=== PATIENT | male | born 1965 | race Two or more races ===

== ENCOUNTER 2025-09-23 13:53 | Emergency (ER) | payer OTHER ==
[~2025-09-23] VITALS: Ht 167.6 cm; Wt 104.3 kg
[2025-09-23 13:55] VITALS: TEMP 97.7
--- NOTE | 2025-09-23 14:51 | ED.PDOC ---
History of Present Illness HPI Comments 60-year-old male presents to the ER with a chief complaint of dizziness. Patient reports on having intermittent dizziness and diarrhea for the past two nights. Patient states that the dizziness worsens at night, as well as it being worsened today associated with chill. Denies any other symptoms at this time. Denies chills, fever, N/V/D, SOB, CP. No other associated symptoms, modifiers, recent injuries or sick contacts present at this time. Chief Complaint: Dizziness Time Seen by MD: 14:50 Reviewed Notes: Nurses Notes, Medications, Allergies Allergies: Coded Allergies: NO KNOWN ALLERGIES (Unverified , 09/23/25) Information Source: Patient Mode of Arrival: Ambulatory Severity: Moderate Timing: Hours Duration: Since onset, Hours Prehospital treatment: None Past Medical History PAST MEDICAL HISTORY: Denies Surgical History: Denies all surgeries Family History Family History: Reviewed,noncontributory to illness, Unknown Social History Smoker: Non-Smoker Alcohol: Denies ETOH Use Drugs: Denies Drug Use Lives In: Home Constitutional: denies: chills, diaphoresis, fatigue, fever, malaise, sweats, weakness, others EENTM: denies: blurred vision, double vision, ear bleeding, ear discharge, ear drainage, ear pain, ear ringing, eye pain, eye redness, hearing loss, mouth pain, mouth swelling, nasal discharge, nose bleeding, nose congestion, nose pain, photophobia, tearing, throat pain, throat swelling, voice changes, others Respiratory: denies: cough, hemoptysis, orthopnea, SOB at rest, shortness of breath, SOB with excertion, stridor, wheezing, others Cardiovascular: denies: chest pain, dizzy spells, diaphoresis, Dyspnea on exertion, edema, irregular heart beat, left arm pain, lightheadedness, palpitations, PND, syncope, others Gastrointestinal: reports: diarrhea; denies: abdomen distended, abdominal pain, blood streaked bowels, constipated, dysphagia, difficulty swallowing, hematemesis, melena, nausea, poor appetite, poor fluid intake, rectal bleeding, rectal pain, vomiting, others Genitourinary: denies: burning, dysuria, flank pain, frequency, hematuria, incontinence, penile discharge, penile sore, pain, testicle pain, testicle swelling, urgency, others Neurological: reports: dizziness; denies: fainting, headache, left sided numbness, left sided weakness, numbness, paresthesia, pre-existing deficit, right sided numbness, right sided weakness, seizure, speech problems, tingling, tremors, weakness, others Musculoskeletal: denies: back pain, gout, joint pain, joint swelling, muscle pain, muscle stiffness, neck pain, others Integumetry: denies: bruises, change in color, change in hair/nails, dryness, laceration, lesions, lumps, rash, wounds, others Allergic/Immunocompromised: denies: Difficulty Healing, Frequent Infections, Hives, Itching, others Hematologic/Lymphatic: denies: anemia, blood clots, easy bleeding, easy bruising, swollen glands, others Endocrine: denies: excessive hunger, excessive sweating, excessive thirst, excessive urination, flushing, intolerance to cold, intolerance to heat, une xplained weight gain, unexplained weight loss, others Psychiatric: denies: anxiety, bipolar disorder, depression, hopeless, panic disorder, schizophrenia, sleepless, suicidal, others All Other Systems: Reviewed and Negative Physical Exam General Appearance: No Apparent Distress, Normal HEENT: Normal ENT Inspection, Pharynx Normal, TMs Normal Neck: Full Range of Motion, Non-Tender, Normal, Normal Inspection Respiratory: Chest Non-Tender, Lungs Clear, No Accessory Muscle Use, No Respiratory Distress, Normal Breath Sounds Cardiovascular: No Edema, No JVD, No Murmur, No Gallop, Normal Peripheral Pul ses, Regular Rate/Rhythm Breast Exam: Deferred Gastrointestinal: No Organomegaly, Non Tender, No Pulsatile Mass, Normal Bowel Sounds, Soft Genitalia: Deferred Pelvic: Deferred Rectal: Deferred Extremities: No calf tenderness, Normal capillary refill, Normal inspection, Normal range of motion, Non-tender, No pedal edema Musculoskeletal : Apperance: Normal Neurologic: Alert, 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 Was a procedure done?: No Differential Dx Considerations may include: Vertigo, ear infection, upper respiratory infection, CVA, X-Ray, Labs, Meds, VS Vital Signs Date Time Temp Pulse Resp B/P (MAP) Pulse Ox O2 Delivery O2 Flow Rate FiO2 09/23/25 14:08 74 09/23/25 13:55 97.7 90 15 142/86 98 97.7 Lab Test 09/23/25 14:45 Range/Units White Blood Count 6.4 4.4-10.8 10^3/uL Red Blood Count 4.16 L 4.5-5.90 10^6/uL Hemoglobin 13.3 L 13.5-17.5 g/dL Hematocrit 38.4 L 41.0-53.0 % Mean Corpuscular Volume 92.4 80.0-100.0 fL Mean Corpuscular Hemoglobin 32.0 28.0-32.0 pg Mean Corpuscular Hemoglobin Concent 34.7 32.0-36.0 g/dL Red Cell Distribution Width 13.3 11.8-14.3 % Platelet Count 314 140-450 10^3/uL Mean Platelet Volume 7.5 6.9-10.8 fL Neutrophils (%) (Auto) 67.0 37.0-80.0 % Lymphocytes (%) (Auto) 22.0 10.0-50.0 % Monocytes (%) (Auto) 8.9 0.0-12.0 % Eosinophils (%) (Auto) 1.8 0.0-7.0 % Basophils (%) (Auto) 0.3 0.0-2.0 % Neutrophils # (Auto) 4.3 1.6-8.6 10 ^3/uL Lymphocytes # (Auto) 1.4 0.4-5.4 10 ^3/uL Monocytes # (Auto) 0.6 0-1.3 10 ^3/uL Eosinophils # (Auto) 0.1 0-0.8 10 ^3/uL Basophils # (Auto) 0 0-0.2 10 ^3/uL Nucleated Red Blood Cells 0.1 % Sodium Level 139 136-145 mmol/L Potassium Level 3.9 3.5-5.1 mmol/L Chloride Level 100 98-107 mmol/L Carbon Dioxide Level 28 20-31 mmol/L Anion Gap 11 5-15 Blood Urea Nitrogen 11 9-23 mg/dL Creatinine 0.86 0.700-1.30 mg/dL Glomerular Filtration Rate Calc 99 >90 mL/min BUN/Creatinine Ratio 12.8 10.0-20.0 Serum Glucose 92 74-106 mg/dL Calcium Level 8.7 8.7-10.4 mg/dL X-Ray, Labs, Meds, VS Comment Imaging was reviewed by this provider, there is no obvious pathological or acute disease process. Pending radiology review Labs were reviewed by this provider, no abnormalities Vital signs reviewed by this provider, clinically stable Time of 1ST Reevaluation: 15:20 Reevaluation 1ST: Unchanged Patient Education/Counseling: Diagnosis, Treatment, Prognosis, Need For Follow Up (Follow up with PCP next available appointment. Return to the emergency department if symptoms worsen.) Family Education/Counseling: No Family Present SEPSIS Sepsis Screen Date sepsis recognized/suspect: Sep 23, 2025 Time Sepsis recognized/suspect: 1358 Recent Procedure: No On Antibiotic Therapy: No Respiratory Rate >20: No Heart Rate >90: No Temp<36 C (96.8 F) or >38.3 C: No SBP <90 or MAP <65 mmHG: No New Acute Mental Status Change: No Is the patient on CPAP, BIPAP,: No Physician Orders Urinalysis (09/23/25 14:39) Electrocardigram (09/23/25 17:00) Vital Signs Date Time Temp Pulse Resp B/P (MAP) Pulse Ox O2 Delivery O2 Flow Rate FiO2 09/23/25 14:08 74 09/23/25 13:55 97.7 90 15 142/86 98 97.7 Laboratory Tests Test 09/23/25 14:45 White Blood Count 6.4 10^3/uL (4.4-10.8) Departure 1 Departure Time of Disposition: 17:49 Impression: Primary Impression: Benign positional vertigo Qualified Codes: H81.13 - Benign paroxysmal vertigo, bilateral Disposition: 01 HOME / SELF CARE / HOMELESS Condition: Stable e-Prescriptions Meclizine HCl (Meclizine 25) 25 Mg Tab 25 MG PO TID PRN, #30 TAB Prov: DOUG ROSARIO 09/23/25 Discharged With: Self Critical Care Note Critical Care Time?: No Stability Stability form required: No Heart Score Heart Score: Heart Score Response (Comments) Value History N/A 0 EKG N/A 0 Age N/A 0 Risk Factors N/A 0 Troponin N/A 0 Total 0 I personally scribed for DOUG ROSARIO ([email or web address]) on 09/23/25 at 14:51. Electronically submitted by Navi Guillen ([email or web address]). DOUG ROSARIO Sep 23, 2025 14:51
[2025-09-23 14:56] LABS: Hematocrit 38.4 % (41.0-53.0); Hemoglobin 13.3 g/dL (13.5-17.5); Mean Corpuscular Hemoglobin 32.0 pg (28.0-32.0); Mean Corpuscular Volume 92.4 fL (80.0-100.0); Nucleated Red Blood Cells % 0.1 %
[2025-09-23 15:04] LABS: Chloride 100 mmol/L (98-107); Potassium 3.9 mmol/L (3.5-5.1); Sodium 139 mmol/L (136-145)
[2025-09-23 15:05] LABS: Anion Gap 11 (5-15); Carbon Dioxide 28 mmol/L (20-31)
[2025-09-23 15:07] LABS: Calcium 8.7 mg/dL (8.7-10.4)
[2025-09-23 15:10] LABS: BUN/Creatinine Ratio 12.8 (10.0-20.0); Blood Urea Nitrogen 11 mg/dL (9-23); Glucose 92 mg/dL (74-106)
[2025-09-23] MEDS ORDERED: MECL1TAB42 PO (17:50)
[2025-09-23 18:02] VITALS: BP 140/86; PULSE 75; RESP 18; O2SAT 95
== END 2025-09-23 18:02 | disposition home or self-care (01) ==
LOC: ER 13:53
DX: H81.13 Benign paroxysmal vertigo, bilateral (principal); R19.7 Diarrhea, unspecified; R68.83 Chills (without fever)
CPT/HCPCS: 36415; 80048; 85025